=== PATIENT | male | born 1930 | race Native Hawaiian/Other Pacific Islander ===

== ENCOUNTER 2018-08-15 15:11 | Outpatient (CLI) | payer OTHER | END 2018-08-15 15:50 | disposition short-term general hospital (02) | LOC: AMB 15:11 | DX: R53.1 Weakness (principal) | CPT/HCPCS: A0425; A0427 ==

== ENCOUNTER 2018-11-13 13:10 | Outpatient (CLI) | payer OTHER | END 2018-11-13 19:48 | disposition home or self-care (01) | LOC: LAB 13:10 | DX: N40.0 Benign prostatic hyperplasia without lower urinary tract symptoms (principal); Z46.6 Encounter for fitting and adjustment of urinary device; I48.91 Unspecified atrial fibrillation; I50.9 Heart failure, unspecified | CPT/HCPCS: 85610 ==

== ENCOUNTER 2018-12-28 10:44 | Outpatient (CLI) | payer OTHER ==
[2018-12-28 11:01] LABS: PLATELET COUNT 255 K/uL (142-355)
[2018-12-28 11:10] LABS: POTASSIUM 3.8 mmol/L (3.6-5.2)
== END 2018-12-28 23:28 | disposition home or self-care (01) ==
LOC: LAB 10:44
PROVIDERS: Internal Medicine
DX: E78.5 Hyperlipidemia, unspecified (principal); D64.9 Anemia, unspecified; I25.10 Atherosclerotic heart disease of native coronary artery without angina pectoris; I50.9 Heart failure, unspecified
CPT/HCPCS: 80053; 80061; 82550; 85027; 86140